=== PATIENT | female | born 1985 | race Caucasian/White ===

== ENCOUNTER 2018-07-18 18:25 | Emergency (ER) | payer BC, MEDICAID ==
[~2018-07-18] VITALS: Ht 160 cm; Wt 52.2 kg
[2018-07-18 18:40] VITALS: BP 121/77
--- NOTE | 2018-07-18 18:46 | NUR ---
PT TRIAGED AND LUIS BEAN CALLED AT THIS TIME
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
--- NOTE | 2018-07-18 18:54 | NUR ---
PT AMBULATED TO ER BED 02 AT THIS TIME
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
--- NOTE | 2018-07-18 19:08 | NUR ---
REPORT GIVEN TO NIKIA PANDEY FOR CONTINUITY OF CARE AT THIS TIME.
[2018-07-18] MEDS ORDERED: KETOROLAC 60 MG/2 ML VIAL IM ONE (19:20)
--- NOTE | 2018-07-18 20:11 | NUR ---
PT LAYING SUPINE IN BED STATING THAT PRESSURE HURTS HER BACK AND SIDE. PT STATES THAT PAIN HAS DECREASED TO 7/10. VSS. WILL CONTINUE TO MONITOR.
[2018-07-18 21:02] VITALS: BP 102/58
--- NOTE | 2018-07-18 21:02 | NUR ---
Patient discharged with v/s stable. Written and verbal after care instructions given and explained. Patient alert, oriented and verbalized understanding of instructions. Ambulatory with steady gait. All questions addressed prior to discharge. ID band removed. Patient advised to follow up with PMD. Rx of MOTRIN AND NORCO given. Patient educated on indication of medication including possible reaction and side effects. Opportunity to ask questions provided and answered.
== END 2018-07-18 21:02 | disposition home or self-care (01) ==
LOC: MED 18:25
DX: S20.212A Contusion of left front wall of thorax, initial encounter (principal); M54.9 Dorsalgia, unspecified; Y04.8XXA Assault by other bodily force, initial encounter; Y93.89 Activity, other specified; Y92.89 Other specified places as the place of occurrence of the external cause; Y99.8 Other external cause status
CPT/HCPCS: 81002; 81025; 96372; 99283; J1885